=== PATIENT | male | born 1955 | race African-American/Black ===

== ENCOUNTER 2021-11-03 12:34 | Inpatient (IN) ==
[2021-11-03 12:58] LABS: Basophils # 0.1 10*3/uL (0.0-0.2); Basophils % 0.7 % (0.0-0.8); Eosinophils # 0.2 10*3/uL (0.0-0.87); Eosinophils % 1.6 % (0.00-10.9); Hematocrit 43.5 VOL% (42.0-52.0); Hemoglobin 13.6 GM/DL (14.0-18.0); Immature Granulocytes % 3.8 %; Immature Granulocytes Absolute 0.47 #; Lymphocytes # 8.3 10*3/uL (1.4-4.0); Lymphocytes % 66.5 % (21.2-54.2); Mean Corpuscular HGB Conc 31.3 GM/DL (32-36); Mean Corpuscular Volume 104.8 FL (87-102); Mean Platelet Volume 9.7 FL (9.6-12.0); Monocytes # 0.9 10*3/uL (0.11-0.8); Monocytes % 7.4 % (1.7-12.7); NRBC # 0.08 10*3/uL; Platelet Count 300 T/CUMM (130-400); Red Blood Count 4.15 MC/CUMM (3.8-5.5); Red Cell Distribution Width 12.2 % (9.3-17.3); White Blood Count 12.5 T/CUMM (4-12)
[2021-11-03 12:59] LABS: ABG Base Excess -20.7 MMOL/L (-2.5-2.5); ABG HCO3 9.9 MMOL/L (20-26); ABG Oxygen Saturation 96.5 % (95-100); ABG TCO2 18.1 MMOL/L (23-27)
[2021-11-03 13:00] LABS: ABG PH 6.843 (7.35-7.45)
[2021-11-03] MEDS ORDERED: ROCURONIUM 100 MG/10 ML VIAL IV ONE (13:05)
[2021-11-03] MEDS ORDERED: MIDAZOLAM 2 MG/2 ML VIAL ONE (13:11)
[2021-11-03 13:18] LABS: Anisocytosis 1+; Atypical Lymphocytes Few; Band Neutrophils 1 % (0-10); Burr Cells Few; Eosinophils 2 % (0-10); Lymphocytes 66 % (20-55); Macrocytosis 1+; Platelet Estimate Normal; Total Cells Counted 100
[2021-11-03] MEDS ORDERED: LACTATED RINGERS 1,000 ML IV ONE (13:24)
[2021-11-03] MEDS ORDERED: SODIUM BICARBONATE 50 MEQ/50 ML VIAL IV STA (13:25)
[2021-11-03 13:33] LABS: Albumin 3.8 G/DL (3.4-5.0); Bilirubin,Total 0.6 MG/DL (0.20-1.00); Calcium 9.2 MG/DL (8.5-10.1); Osmolality,Calculated 293.1 MOS/KG (273-304); Potassium 3.5 MMOL/L (3.5-5.1); Total Protein 6.5 G/DL (6.4-8.2)
[2021-11-03] MEDS ORDERED: ROCURONIUM 100 MG/10 ML VIAL IV STA (13:38)
[2021-11-03] MEDS ORDERED: MIDAZOLAM 2 MG/2 ML VIAL IV STA (13:38)
[2021-11-03 13:51] LABS: Mucus,Urine Occasional /LPF (Occasional); RBC,Urine 10 /HPF (0-4); Sperm,Urine Moderate /HPF (Negative); Squamous Epithelial Cell,Urine Occasional /HPF (0-10)
[2021-11-03 13:51] LABS: Arterial Base Excess iSTAT -4 MMOL/L (-2.5-2.5); Arterial O2 Saturation iSTAT 94 % (95-100); Arterial PCO2 iSTAT 51 MM HG (35-48); Arterial PO2 iSTAT 82 MM HG (80-95); Arterial Total CO2 iSTAT 25 MMO/L (23-27)
[2021-11-03 13:53] LABS: Urine Appearance Clear (Clear); Urine Color Yellow (Yellow)
[2021-11-03 13:54] LABS: Bilirubin,Urine Negative (Negative); Blood, Urine Moderate mg/dL (Negative); Glucose,Urine (UA) >=1000 mg/dL (Negative); Ketones,Urine Negative (Negative); Nitrite,Urine Negative (Negative); Protein,Urine >=300 mg/dL (Negative); Urine Specific Gravity >= 1.030 (1.001-1.035)
[2021-11-03 13:55] LABS: Urine Urobilinogen < 2.0 eU/dL (<2.0)
[2021-11-03 14:34] LABS: Barbiturates Screen,Urine Negative (Negative); Benzodiazepines Screen,Urine Negative (Negative); Cannabinoid Screen,Urine Positive (Negative); Opiate Screen,Urine Negative (Negative); Phencyclidine Screen,Urine Negative (Negative)
[2021-11-03] MEDS ORDERED: PIPERACILLIN/TAZOBACTAM 3,375 MG in SODIUM CHLORIDE 0.9% 100 ML IV STA (14:46)
[2021-11-03] MEDS ORDERED: DIAZEPAM 10 MG/2 ML SYRINGE ONE (15:19)
[2021-11-03] MEDS ORDERED: DIAZEPAM 10 MG/2 ML SYRINGE IV STA (15:20)
[2021-11-03] MEDS ORDERED: ONDANSETRON 4 MG/2 ML VIAL IV PRN (15:35)
[2021-11-03] MEDS ORDERED: ALBUTEROL 2.5 MG/3 ML NEB RESP TX PRN (15:35)
[2021-11-03] MEDS ORDERED: MIDAZOLAM 10 MG/2 ML VIAL ONE (15:53)
[2021-11-03] MEDS ORDERED: MIDAZOLAM 2 MG/2 ML VIAL IV ONE (15:54)
[2021-11-03] MEDS ORDERED: PHENYLEPHRINE DRIP 40 MG/250 ML PREMIX IV ONE (16:02)
[2021-11-03] MEDS ORDERED: SODIUM CHLORIDE 0.9% 1,000 ML IV ONE (16:06)
[2021-11-03] MEDS: PHENYLEPHRINE DRIP 40 MG/250 ML PREMIX IV PRN ×2 (16:06→21:26)
[2021-11-03] MEDS: CISATRACURIUM 200 MG in SODIUM CHLORIDE 0.9% 180 ML IV PRN (16:35)
[2021-11-03] MEDS ORDERED: CISATRACURIUM 10 MG/5 ML VIAL IV ONE (16:44)
[2021-11-03 16:52] LABS: Basophils % 0.2 % (0.0-0.8); Eosinophils % 0.1 % (0.00-10.9); Hematocrit 40.5 VOL% (42.0-52.0); Hemoglobin 13.5 GM/DL (14.0-18.0); Immature Granulocytes % 0.9 %; Immature Granulocytes Absolute 0.12 #; Lymphocytes # 1.2 10*3/uL (1.4-4.0); Lymphocytes % 8.4 % (21.2-54.2); Mean Corpuscular HGB Conc 33.3 GM/DL (32-36); Mean Corpuscular Volume 96.7 FL (87-102); Mean Platelet Volume 9.3 FL (9.6-12.0); Monocytes % 6.9 % (1.7-12.7); Neutrophils % 83.5 % (38.7-73.9); Platelet Count 298 T/CUMM (130-400); Red Blood Count 4.19 MC/CUMM (3.8-5.5); Red Cell Distribution Width 12.2 % (9.3-17.3); White Blood Count 13.9 T/CUMM (4-12)
[2021-11-03 17:07] LABS: Alanine Aminotransferase 141 U/L (16-61); Albumin 3.6 G/DL (3.4-5.0); Alkaline Phosphatase 70 U/L (45-117); Amylase 150 U/L (25-115); Aspartate Amino Transferase 156 U/L (0-37); Blood Urea Nitrogen 13 MG/DL (7-18); CKMB % 1.53 %; Calcium 7.6 MG/DL (8.5-10.1); Carbon Dioxide 26 MMOL/L (21-32); Chloride 111 MMOL/L (98-107); Glucose 167 MG/DL (74-106); Osmolality,Calculated 289.8 MOS/KG (273-304); Phosphorous 2.3 MG/DL (2.5-4.9); Sodium 144 MMOL/L (136-145); Total Protein 6.9 G/DL (6.4-8.2)
[2021-11-03 17:11] LABS: INR 1.1; PT Patient Result 11.7 SECS (10.5-12.0); Partial Thromboplastin Time 25.5 SECS (23.7-32.9)
[2021-11-03] MEDS: fentaNYL INJ 1,250 MCG in SODIUM CHLORIDE 0.9% 225 ML IV PRN (17:15)
[2021-11-03] MEDS ORDERED: hydrALAZINE 20 MG/1 ML VIAL IV PRN (17:19)
[2021-11-03 17:44] LABS: ABG Base Excess -4.1 MMOL/L (-2.5-2.5); ABG HCO3 21.1 MMOL/L (20-26); ABG Oxygen Saturation 99.6 % (95-100); ABG PCO2 47.2 MM HG (35-48); ABG PH 7.293 (7.35-7.45); ABG TCO2 20.1 MMOL/L (23-27)
[2021-11-03 18:01] LABS: Hyaline Casts,Urine 1 /LPF (0-3); RBC,Urine 4 /HPF (0-4); Squamous Epithelial Cell,Urine Occasional /HPF (0-10)
[2021-11-03 18:04] LABS: Bilirubin,Urine Negative (Negative); Blood, Urine Moderate mg/dL (Negative); Glucose,Urine (UA) 100 mg/dL (Negative); Ketones,Urine Negative (Negative); Nitrite,Urine Negative (Negative); Protein,Urine Negative (Negative); Urine Appearance Clear (Clear); Urine Color Yellow (Yellow); Urine Urobilinogen 0.2 eU/dL (<2.0)
[2021-11-03 18:05] VITALS: BP 113/68
[2021-11-03] MEDS ORDERED: GLUCAGON 1 MG VIAL IM PRN (18:05)
[2021-11-03] MEDS ORDERED: DEXTROSE 10% 250 ML BAG IV PRN (18:14)
[2021-11-03] MEDS: LACTATED RINGERS 1,000 ML IV SCH (18:49)
[2021-11-03] MEDS: ENOXAPARIN 40 MG/0.4 ML SYRINGE SUBCUT SCH (18:52)
[2021-11-03] MEDS: PANTOPRAZOLE 40 MG VIAL IV SCH (18:53)
[2021-11-03] MEDS: PIPERACILLIN/TAZOBACTAM 3,375 MG in SODIUM CHLORIDE 0.9% 100 ML IV SCH (21:45)
[2021-11-03] MEDS ORDERED: INSULIN LISPRO 100 UNIT/ML SUBCUT SCH (22:00)
[2021-11-03 22:02] LABS: Basophils % 0.2 % (0.0-0.8); Eosinophils % 0.1 % (0.00-10.9); Hematocrit 38.1 VOL% (42.0-52.0); Hemoglobin 13.1 GM/DL (14.0-18.0); Immature Granulocytes % 0.5 %; Immature Granulocytes Absolute 0.07 #; Lymphocytes # 0.8 10*3/uL (1.4-4.0); Lymphocytes % 5.6 % (21.2-54.2); Mean Corpuscular HGB Conc 34.4 GM/DL (32-36); Mean Corpuscular Volume 94.5 FL (87-102); Mean Platelet Volume 9.1 FL (9.6-12.0); Monocytes # 0.6 10*3/uL (0.11-0.8); Monocytes % 4.1 % (1.7-12.7); Neutrophils % 89.5 % (38.7-73.9); Platelet Count 284 T/CUMM (130-400); Red Blood Count 4.03 MC/CUMM (3.8-5.5); Red Cell Distribution Width 12.3 % (9.3-17.3)
[2021-11-03] MEDS: ACETYLCYSTEINE 600 MG CAPSULE PO SCH (22:11)
[2021-11-03 22:20] LABS: INR 1.1; PT Patient Result 11.9 SECS (10.5-12.0); Partial Thromboplastin Time 30.4 SECS (23.7-32.9)
[2021-11-03 22:23] LABS: CKMB % 1.58 %; Calcium 7.5 MG/DL (8.5-10.1); Potassium 3.5 MMOL/L (3.5-5.1)
[2021-11-03 22:29] LABS: High Sensitive Troponin I* 155.1 ng/L (0-78)
[2021-11-03] MEDS ORDERED: POTASSIUM CHLORIDE RIDER 20 MEQ/100 ML PREMIX IV ONE (22:49)
[2021-11-04] MEDS: LACTATED RINGERS 1,000 ML IV SCH ×6 (02:06→23:23)
[2021-11-04] MEDS: INSULIN REGULAR 100 UNIT/ML IV SCH ×8 (02:39→23:24)
[2021-11-04] MEDS: PIPERACILLIN/TAZOBACTAM 3,375 MG in SODIUM CHLORIDE 0.9% 100 ML IV SCH ×3 (04:20→20:03)
[2021-11-04 04:22] LABS: ABG Base Excess -3.3 MMOL/L (-2.5-2.5); ABG HCO3 21.7 MMOL/L (20-26); ABG Oxygen Saturation 99.7 % (95-100); ABG PCO2 35.4 MM HG (35-48); ABG PH 7.383 (7.35-7.45); ABG TCO2 18.7 MMOL/L (23-27)
[2021-11-04 04:36] LABS: Basophils % 0.2 % (0.0-0.8); Eosinophils % 0.1 % (0.00-10.9); Hematocrit 35.3 VOL% (42.0-52.0); Hemoglobin 11.9 GM/DL (14.0-18.0); Immature Granulocytes % 0.5 %; Immature Granulocytes Absolute 0.06 #; Lymphocytes # 1.1 10*3/uL (1.4-4.0); Lymphocytes % 9.7 % (21.2-54.2); Mean Corpuscular HGB Conc 33.7 GM/DL (32-36); Mean Corpuscular Volume 95.4 FL (87-102); Mean Platelet Volume 9.3 FL (9.6-12.0); Monocytes # 0.6 10*3/uL (0.11-0.8); Monocytes % 5.2 % (1.7-12.7); Neutrophils % 84.3 % (38.7-73.9); Platelet Count 258 T/CUMM (130-400); Red Cell Distribution Width 12.3 % (9.3-17.3); White Blood Count 11.3 T/CUMM (4-12)
[2021-11-04 04:44] LABS: INR 1.1; PT Patient Result 11.6 SECS (10.5-12.0)
[2021-11-04 04:52] LABS: CKMB % 1.61 %; High Sensitive Troponin I* 129.4 ng/L (0-78)
[2021-11-04 04:53] LABS: Bilirubin,Total 0.5 MG/DL (0.20-1.00); Calcium 7.5 MG/DL (8.5-10.1); Osmolality,Calculated 288.8 MOS/KG (273-304); Potassium 4.1 MMOL/L (3.5-5.1); Risk Ratio 2.64; Total Protein 5.3 G/DL (6.4-8.2); VLDL Cholesterol 22.8 MG/DL
[2021-11-04] MEDS: PHENYLEPHRINE DRIP 40 MG/250 ML PREMIX IV PRN (04:59)
[2021-11-04 06:04] LABS: Anisocytosis Slight; Band Neutrophils 22 % (0-10); Lymphocytes 10 % (20-55); Macrocytosis 1+; Platelet Estimate Normal; Total Cells Counted 100
[2021-11-04] MEDS ORDERED: SODIUM PHOSPHATE INJ 15 MMOL in SODIUM CHLORIDE 0.9% 250 ML IV ONE (08:05)
[2021-11-04] MEDS ORDERED: NOREPINEPHRINE 4 MG/4 ML VIAL IV ONE (08:05)
[2021-11-04] MEDS: NOREPINEPHRINE 8 MG in SODIUM CHLORIDE 0.9% 242 ML IV PRN (08:14)
[2021-11-04] MEDS: MIDAZOLAM 100 MG in SODIUM CHLORIDE 0.9% 80 ML IV PRN (09:08)
[2021-11-04] MEDS: ACETYLCYSTEINE 600 MG CAPSULE PO SCH ×2 (09:27→20:03)
[2021-11-04 10:16] LABS: ABG Base Excess -2.5 MMOL/L (-2.5-2.5); ABG HCO3 22.4 MMOL/L (20-26); ABG Oxygen Saturation 98.9 % (95-100); ABG PCO2 36.7 MM HG (35-48); ABG PH 7.387 (7.35-7.45); ABG TCO2 19.6 MMOL/L (23-27)
[2021-11-04 10:19] LABS: Basophils % 0.1 % (0.0-0.8); Eosinophils % 0.2 % (0.00-10.9); Hemoglobin 11.9 GM/DL (14.0-18.0); Immature Granulocytes % 0.3 %; Immature Granulocytes Absolute 0.03 #; Lymphocytes # 1.1 10*3/uL (1.4-4.0); Lymphocytes % 13.2 % (21.2-54.2); Mean Corpuscular Volume 95.1 FL (87-102); Mean Platelet Volume 9.4 FL (9.6-12.0); Monocytes # 0.4 10*3/uL (0.11-0.8); Monocytes % 4.7 % (1.7-12.7); Neutrophils % 81.5 % (38.7-73.9); Platelet Count 216 T/CUMM (130-400); Red Blood Count 3.68 MC/CUMM (3.8-5.5); Red Cell Distribution Width 12.5 % (9.3-17.3); White Blood Count 8.6 T/CUMM (4-12)
[2021-11-04 10:32] LABS: INR 1.1; PT Patient Result 11.6 SECS (10.5-12.0); Partial Thromboplastin Time 34.1 SECS (23.7-32.9)
[2021-11-04 10:33] LABS: CKMB % 1.77 %; Calcium 7.5 MG/DL (8.5-10.1); Osmolality,Calculated 288.8 MOS/KG (273-304); Potassium 3.4 MMOL/L (3.5-5.1)
[2021-11-04 10:34] LABS: High Sensitive Troponin I* 111.9 ng/L (0-78)
[2021-11-04 10:53] LABS: Anisocytosis 1+; Band Neutrophils 19 % (0-10); Lymphocytes 10 % (20-55); Macrocytosis Slight; Platelet Estimate Normal; Total Cells Counted 100
[2021-11-04] MEDS ORDERED: POTASSIUM CHLORIDE RIDER 20 MEQ/100 ML PREMIX IV ONE (11:05)
[2021-11-04 12:44] LABS: Hepatitis B Core IgM Quant < 0.05 Index; Hepatitis B Surface Ag Quant < 0.10 Index; Hepatitis B Surface Ag Result Non-Reactive (NonReactive); Hepatitis C Virus Ab Quant 0.09 Index; Hepatitis C Virus Ab Result Non-Reactive (NonReactive)
[2021-11-04] MEDS ORDERED: MEPERIDINE 25 MG/1 ML VIAL IV ONE (13:00)
[2021-11-04] MEDS ORDERED: MEPERIDINE 25 MG/1 ML VIAL IV PRN (13:59)
[2021-11-04] MEDS: CISATRACURIUM 200 MG in SODIUM CHLORIDE 0.9% 180 ML IV PRN ×2 (16:00→23:05)
[2021-11-04 16:19] LABS: Basophils % 0.1 % (0.0-0.8); Eosinophils % 0.5 % (0.00-10.9); Hematocrit 32.8 VOL% (42.0-52.0); Hemoglobin 11.3 GM/DL (14.0-18.0); Immature Granulocytes % 0.4 %; Immature Granulocytes Absolute 0.03 #; Lymphocytes # 1.3 10*3/uL (1.4-4.0); Lymphocytes % 16.5 % (21.2-54.2); Mean Corpuscular HGB Conc 34.5 GM/DL (32-36); Mean Corpuscular Volume 94.5 FL (87-102); Mean Platelet Volume 9.6 FL (9.6-12.0); Monocytes # 0.4 10*3/uL (0.11-0.8); Monocytes % 4.4 % (1.7-12.7); Neutrophils % 78.1 % (38.7-73.9); Platelet Count 198 T/CUMM (130-400); Red Blood Count 3.47 MC/CUMM (3.8-5.5); Red Cell Distribution Width 12.7 % (9.3-17.3); White Blood Count 7.9 T/CUMM (4-12)
[2021-11-04 16:27] LABS: PT Patient Result 11.5 SECS (10.5-12.0); Partial Thromboplastin Time 34.2 SECS (23.7-32.9)
[2021-11-04 16:29] LABS: Calcium 7.2 MG/DL (8.5-10.1); Osmolality,Calculated 286.8 MOS/KG (273-304); Potassium 3.7 MMOL/L (3.5-5.1)
[2021-11-04 16:42] LABS: Band Neutrophils 18 % (0-10); Lymphocytes 14 % (20-55); Total Cells Counted 100
[2021-11-04 16:43] LABS: Burr Cells Few; Macrocytosis Slight
[2021-11-04 16:44] LABS: Platelet Estimate Normal
[2021-11-04] MEDS: ENOXAPARIN 40 MG/0.4 ML SYRINGE SUBCUT SCH (16:49)
[2021-11-04] MEDS: PANTOPRAZOLE 40 MG VIAL IV SCH (16:49)
[2021-11-04 21:28] LABS: Basophils % 0.3 % (0.0-0.8); Eosinophils # 0.1 10*3/uL (0.0-0.87); Eosinophils % 0.8 % (0.00-10.9); Hematocrit 31.9 VOL% (42.0-52.0); Hemoglobin 10.9 GM/DL (14.0-18.0); Immature Granulocytes % 0.4 %; Immature Granulocytes Absolute 0.03 #; Lymphocytes % 14.1 % (21.2-54.2); Mean Corpuscular HGB Conc 34.2 GM/DL (32-36); Mean Corpuscular Volume 94.7 FL (87-102); Mean Platelet Volume 9.7 FL (9.6-12.0); Monocytes # 0.3 10*3/uL (0.11-0.8); Monocytes % 3.4 % (1.7-12.7); Platelet Count 179 T/CUMM (130-400); Red Blood Count 3.37 MC/CUMM (3.8-5.5); Red Cell Distribution Width 12.5 % (9.3-17.3); White Blood Count 7.3 T/CUMM (4-12)
[2021-11-04 21:36] LABS: INR 1.1; PT Patient Result 11.8 SECS (10.5-12.0); Partial Thromboplastin Time 37.6 SECS (23.7-32.9)
[2021-11-04 21:39] LABS: Calcium 7.2 MG/DL (8.5-10.1); Osmolality,Calculated 287.7 MOS/KG (273-304)
[2021-11-04 21:50] LABS: Band Neutrophils 2 % (0-10); Lymphocytes 13 % (20-55); Total Cells Counted 100
[2021-11-04 21:51] LABS: Platelet Estimate Normal
[2021-11-04] MEDS ORDERED: POTASSIUM CHLORIDE RIDER 10 MEQ/100 ML PREMIX IV ONE (21:55)
[2021-11-05] MEDS: INSULIN REGULAR 100 UNIT/ML IV SCH ×8 (01:27→23:54)
[2021-11-05 04:08] LABS: ABG Base Excess -1.9 MMOL/L (-2.5-2.5); ABG HCO3 22.8 MMOL/L (20-26); ABG Oxygen Saturation 98.3 % (95-100); ABG PCO2 34.2 MM HG (35-48); ABG PH 7.418 (7.35-7.45); ABG TCO2 19.9 MMOL/L (23-27)
[2021-11-05 04:10] LABS: Basophils % 0.2 % (0.0-0.8); Eosinophils # 0.1 10*3/uL (0.0-0.87); Eosinophils % 0.9 % (0.00-10.9); Hematocrit 31.6 VOL% (42.0-52.0); Hemoglobin 10.7 GM/DL (14.0-18.0); Immature Granulocytes % 0.5 %; Immature Granulocytes Absolute 0.04 #; Lymphocytes # 1.3 10*3/uL (1.4-4.0); Lymphocytes % 15.4 % (21.2-54.2); Mean Corpuscular HGB Conc 33.9 GM/DL (32-36); Mean Corpuscular Volume 94.9 FL (87-102); Mean Platelet Volume 9.7 FL (9.6-12.0); Monocytes # 0.2 10*3/uL (0.11-0.8); Monocytes % 2.6 % (1.7-12.7); Neutrophils % 80.4 % (38.7-73.9); Platelet Count 184 T/CUMM (130-400); Red Blood Count 3.33 MC/CUMM (3.8-5.5); Red Cell Distribution Width 12.9 % (9.3-17.3); White Blood Count 8.1 T/CUMM (4-12)
[2021-11-05 04:24] LABS: INR 1.1; PT Patient Result 12.4 SECS (10.5-12.0); Partial Thromboplastin Time 36.4 SECS (23.7-32.9)
[2021-11-05 04:27] LABS: Albumin 2.5 G/DL (3.4-5.0); Bilirubin,Total 0.5 MG/DL (0.20-1.00); Calcium 7.6 MG/DL (8.5-10.1); Osmolality,Calculated 284.8 MOS/KG (273-304); Potassium 3.3 MMOL/L (3.5-5.1); Total Protein 4.8 G/DL (6.4-8.2)
[2021-11-05 04:37] LABS: Anisocytosis 1+; Band Neutrophils 14 % (0-10); Eosinophils 1 % (0-10); Lymphocytes 15 % (20-55); Macrocytosis Slight; Platelet Estimate Normal; Total Cells Counted 100
[2021-11-05] MEDS ORDERED: POTASSIUM CHLORIDE RIDER 10 MEQ/100 ML PREMIX IV ONE (04:39)
[2021-11-05] MEDS: PIPERACILLIN/TAZOBACTAM 3,375 MG in SODIUM CHLORIDE 0.9% 100 ML IV SCH ×3 (04:59→21:05)
[2021-11-05] MEDS: CISATRACURIUM 200 MG in SODIUM CHLORIDE 0.9% 180 ML IV PRN (05:49)
[2021-11-05 07:24] LABS: ABG Base Excess -1.6 MMOL/L (-2.5-2.5); ABG HCO3 23.1 MMOL/L (20-26); ABG Oxygen Saturation 97.3 % (95-100); ABG PH 7.424 (7.35-7.45); ABG PO2 90.9 MM HG (80-95); ABG TCO2 20.1 MMOL/L (23-27)
[2021-11-05 07:25] LABS: Basophils % 0.2 % (0.0-0.8); Eosinophils # 0.1 10*3/uL (0.0-0.87); Eosinophils % 0.7 % (0.00-10.9); Hematocrit 31.3 VOL% (42.0-52.0); Hemoglobin 10.6 GM/DL (14.0-18.0); Immature Granulocytes % 0.5 %; Immature Granulocytes Absolute 0.04 #; Lymphocytes # 0.8 10*3/uL (1.4-4.0); Lymphocytes % 9.2 % (21.2-54.2); Mean Corpuscular HGB Conc 33.9 GM/DL (32-36); Mean Corpuscular Volume 94.8 FL (87-102); Mean Platelet Volume 9.6 FL (9.6-12.0); Monocytes # 0.4 10*3/uL (0.11-0.8); Neutrophils % 85.4 % (38.7-73.9); Platelet Count 189 T/CUMM (130-400); White Blood Count 8.8 T/CUMM (4-12)
[2021-11-05 07:38] LABS: INR 1.1; PT Patient Result 11.6 SECS (10.5-12.0); Partial Thromboplastin Time 34.9 SECS (23.7-32.9)
[2021-11-05 07:49] LABS: CKMB % 1.85 %; High Sensitive Troponin I* 60.6 ng/L (0-78)
[2021-11-05 07:50] LABS: Band Neutrophils 18 % (0-10); Lymphocytes 9 % (20-55); Total Cells Counted 100
[2021-11-05 07:51] LABS: Anisocytosis 1+; Macrocytosis Slight; Platelet Estimate Normal
[2021-11-05 07:55] LABS: Albumin 2.5 G/DL (3.4-5.0); Bilirubin,Total 0.5 MG/DL (0.20-1.00); Calcium 7.6 MG/DL (8.5-10.1); Phosphorous 1.8 MG/DL (2.5-4.9); Potassium 3.5 MMOL/L (3.5-5.1); Total Protein 4.9 G/DL (6.4-8.2)
[2021-11-05] MEDS: LACTATED RINGERS 1,000 ML IV SCH ×5 (07:56→23:11)
[2021-11-05] MEDS ORDERED: POTASSIUM CHLORIDE RIDER 20 MEQ/100 ML PREMIX IV ONE (08:20)
[2021-11-05] MEDS ORDERED: POTASSIUM CHLORIDE RIDER 10 MEQ/100 ML PREMIX IV PRN (08:22)
[2021-11-05] MEDS ORDERED: MAGNESIUM SULF RIDER 2 GM/50 ML PREMIX IV PRN (08:23)
[2021-11-05] MEDS: ACETYLCYSTEINE 600 MG CAPSULE PO SCH ×2 (08:24→21:05)
[2021-11-05] MEDS: POTASSIUM CHLORIDE RIDER 20 MEQ/100 ML PREMIX IV PRN ×2 (08:41→17:12)
[2021-11-05] MEDS ORDERED: LACTATED RINGERS 500 ML IV ONE (09:39)
[2021-11-05] MEDS: NOREPINEPHRINE 8 MG in SODIUM CHLORIDE 0.9% 242 ML IV PRN (10:08)
[2021-11-05 10:15] LABS: Basophils % 0.2 % (0.0-0.8); Eosinophils % 0.5 % (0.00-10.9); Hematocrit 30.3 VOL% (42.0-52.0); Hemoglobin 10.3 GM/DL (14.0-18.0); Immature Granulocytes % 0.4 %; Immature Granulocytes Absolute 0.03 #; Lymphocytes # 1.1 10*3/uL (1.4-4.0); Lymphocytes % 12.7 % (21.2-54.2); Mean Corpuscular Volume 96.5 FL (87-102); Mean Platelet Volume 9.7 FL (9.6-12.0); Monocytes # 0.3 10*3/uL (0.11-0.8); Monocytes % 3.7 % (1.7-12.7); Neutrophils % 82.5 % (38.7-73.9); Platelet Count 183 T/CUMM (130-400); Red Blood Count 3.14 MC/CUMM (3.8-5.5); Red Cell Distribution Width 13.1 % (9.3-17.3); White Blood Count 8.3 T/CUMM (4-12)
[2021-11-05 10:25] LABS: PT Patient Result 11.5 SECS (10.5-12.0); Partial Thromboplastin Time 33.4 SECS (23.7-32.9)
[2021-11-05 10:33] LABS: Calcium 6.9 MG/DL (8.5-10.1); Osmolality,Calculated 283.8 MOS/KG (273-304); Potassium 3.8 MMOL/L (3.5-5.1)
[2021-11-05 10:36] LABS: Anisocytosis 1+; Band Neutrophils 15 % (0-10); Lymphocytes 10 % (20-55); Macrocytosis 1+; Platelet Estimate Normal; Total Cells Counted 100
[2021-11-05] MEDS ORDERED: CALCIUM GLUCONATE RIDER 1,000 MG/50 ML PREMIX IV ONE (11:30)
[2021-11-05] MEDS ORDERED: POTASSIUM PHOSPHATE 20 MMOL in SODIUM CHLORIDE 0.9% 250 ML IV ONE (13:00)
[2021-11-05] MEDS: MIDAZOLAM 100 MG in SODIUM CHLORIDE 0.9% 80 ML IV PRN (13:11)
[2021-11-05 16:11] LABS: Basophils % 0.2 % (0.0-0.8); Eosinophils % 0.3 % (0.00-10.9); Hematocrit 30.7 VOL% (42.0-52.0); Hemoglobin 10.3 GM/DL (14.0-18.0); Immature Granulocytes % 0.9 %; Immature Granulocytes Absolute 0.08 #; Lymphocytes # 1.1 10*3/uL (1.4-4.0); Lymphocytes % 12.4 % (21.2-54.2); Mean Corpuscular HGB Conc 33.6 GM/DL (32-36); Mean Corpuscular Volume 97.2 FL (87-102); Mean Platelet Volume 9.8 FL (9.6-12.0); Monocytes # 0.3 10*3/uL (0.11-0.8); Monocytes % 3.5 % (1.7-12.7); Neutrophils % 82.7 % (38.7-73.9); Platelet Count 188 T/CUMM (130-400); Red Blood Count 3.16 MC/CUMM (3.8-5.5); Red Cell Distribution Width 13.1 % (9.3-17.3); White Blood Count 8.6 T/CUMM (4-12)
[2021-11-05 16:20] LABS: Calcium 7.5 MG/DL (8.5-10.1); Osmolality,Calculated 282.8 MOS/KG (273-304); Potassium 3.9 MMOL/L (3.5-5.1)
[2021-11-05] MEDS: LORazepam 2 MG/1 ML VIAL IV PRN (16:41)
[2021-11-05 16:45] LABS: PT Patient Result 11.4 SECS (10.5-12.0)
[2021-11-05] MEDS: ENOXAPARIN 40 MG/0.4 ML SYRINGE SUBCUT SCH (16:47)
[2021-11-05] MEDS: PANTOPRAZOLE 40 MG VIAL IV SCH (16:47)
[2021-11-05] MEDS ORDERED: DIAZEPAM 10 MG/2 ML SYRINGE IV PRN (17:49)
[2021-11-05 20:18] LABS: Lymphocytes 10 % (20-55); Total Cells Counted 100
[2021-11-05 20:19] LABS: Platelet Estimate Normal
[2021-11-05] MEDS: DIAZEPAM 10 MG/2 ML SYRINGE IV PRN ×2 (21:04→22:46)
[2021-11-05] MEDS: fentaNYL INJ 1,250 MCG in SODIUM CHLORIDE 0.9% 225 ML IV PRN (22:50)
[2021-11-06] MEDS: LORazepam 2 MG/1 ML VIAL IV PRN ×2 (00:42→04:17)
[2021-11-06] MEDS: DIAZEPAM 10 MG/2 ML SYRINGE IV PRN ×3 (01:15→04:17)
[2021-11-06] MEDS ORDERED: DIAZEPAM 10 MG/2 ML SYRINGE IV PRN (01:30)
[2021-11-06 03:34] LABS: Basophils % 0.3 % (0.0-0.8); Eosinophils # 0.1 10*3/uL (0.0-0.87); Eosinophils % 0.7 % (0.00-10.9); Hematocrit 33.6 VOL% (42.0-52.0); Immature Granulocytes % 0.9 %; Immature Granulocytes Absolute 0.11 #; Lymphocytes # 1.9 10*3/uL (1.4-4.0); Lymphocytes % 15.9 % (21.2-54.2); Mean Corpuscular HGB Conc 32.7 GM/DL (32-36); Mean Corpuscular Volume 99.1 FL (87-102); Mean Platelet Volume 9.6 FL (9.6-12.0); Monocytes # 0.7 10*3/uL (0.11-0.8); Monocytes % 5.9 % (1.7-12.7); Neutrophils % 76.3 % (38.7-73.9); Platelet Count 210 T/CUMM (130-400); Red Blood Count 3.39 MC/CUMM (3.8-5.5); Red Cell Distribution Width 13.2 % (9.3-17.3); White Blood Count 12.2 T/CUMM (4-12)
[2021-11-06 03:35] LABS: ABG Base Excess -4.8 MMOL/L (-2.5-2.5); ABG HCO3 20.2 MMOL/L (20-26); ABG Oxygen Saturation 84.1 % (95-100); ABG PCO2 54.9 MM HG (35-48); ABG PH 7.235 (7.35-7.45); ABG PO2 60.2 MM HG (80-95); ABG TCO2 21.5 MMOL/L (23-27)
[2021-11-06 03:54] LABS: Band Neutrophils 1 % (0-10); Eosinophils 1 % (0-10); Lymphocytes 8 % (20-55); Total Cells Counted 100
[2021-11-06 03:55] LABS: Platelet Estimate Adequate
[2021-11-06 03:59] LABS: Albumin 2.6 G/DL (3.4-5.0); Bilirubin,Total 0.6 MG/DL (0.20-1.00); Calcium 7.9 MG/DL (8.5-10.1); Osmolality,Calculated 284.7 MOS/KG (273-304); Potassium 4.3 MMOL/L (3.5-5.1); Total Protein 5.7 G/DL (6.4-8.2)
[2021-11-06] MEDS: INSULIN REGULAR 100 UNIT/ML IV SCH ×5 (05:04→19:47)
[2021-11-06] MEDS: LACTATED RINGERS 1,000 ML IV SCH ×3 (05:13→15:08)
[2021-11-06] MEDS: PIPERACILLIN/TAZOBACTAM 3,375 MG in SODIUM CHLORIDE 0.9% 100 ML IV SCH ×3 (05:49→20:16)
[2021-11-06] MEDS: MIDAZOLAM 100 MG in SODIUM CHLORIDE 0.9% 80 ML IV PRN (09:06)
[2021-11-06] MEDS: ACETYLCYSTEINE 600 MG CAPSULE PO SCH ×2 (09:06→20:19)
[2021-11-06] MEDS ORDERED: FUROSEMIDE 40 MG/4 ML VIAL IV ONE (13:01)
[2021-11-06] MEDS: fentaNYL INJ 1,250 MCG in SODIUM CHLORIDE 0.9% 225 ML IV PRN (14:15)
[2021-11-06] MEDS: PANTOPRAZOLE 40 MG VIAL IV SCH (17:03)
[2021-11-06] MEDS: ENOXAPARIN 40 MG/0.4 ML SYRINGE SUBCUT SCH (17:05)
[2021-11-07] MEDS: INSULIN REGULAR 100 UNIT/ML IV SCH ×3 (00:06→08:55)
[2021-11-07] MEDS: LACTATED RINGERS 1,000 ML IV SCH (02:10)
[2021-11-07] MEDS: CISATRACURIUM 200 MG in SODIUM CHLORIDE 0.9% 180 ML IV PRN (03:35)
[2021-11-07] MEDS: MIDAZOLAM 100 MG in SODIUM CHLORIDE 0.9% 80 ML IV PRN (04:01)
[2021-11-07 04:03] LABS: ABG Base Excess -4.6 MMOL/L (-2.5-2.5); ABG HCO3 20.7 MMOL/L (20-26); ABG Oxygen Saturation 99.4 % (95-100); ABG PCO2 36.8 MM HG (35-48); ABG PH 7.353 (7.35-7.45); ABG TCO2 18.4 MMOL/L (23-27)
[2021-11-07 04:06] LABS: Basophils % 0.3 % (0.0-0.8); Eosinophils # 0.1 10*3/uL (0.0-0.87); Eosinophils % 0.5 % (0.00-10.9); Hematocrit 33.3 VOL% (42.0-52.0); Hemoglobin 10.8 GM/DL (14.0-18.0); Immature Granulocytes % 0.4 %; Immature Granulocytes Absolute 0.04 #; Lymphocytes # 0.6 10*3/uL (1.4-4.0); Lymphocytes % 6.1 % (21.2-54.2); Mean Corpuscular HGB Conc 32.4 GM/DL (32-36); Mean Corpuscular Volume 99.1 FL (87-102); Mean Platelet Volume 9.6 FL (9.6-12.0); Monocytes # 0.5 10*3/uL (0.11-0.8); Monocytes % 4.9 % (1.7-12.7); Neutrophils % 87.8 % (38.7-73.9); Platelet Count 192 T/CUMM (130-400); Red Blood Count 3.36 MC/CUMM (3.8-5.5); Red Cell Distribution Width 13.2 % (9.3-17.3); White Blood Count 9.5 T/CUMM (4-12)
[2021-11-07] MEDS: fentaNYL INJ 1,250 MCG in SODIUM CHLORIDE 0.9% 225 ML IV PRN (04:08)
[2021-11-07] MEDS: PIPERACILLIN/TAZOBACTAM 3,375 MG in SODIUM CHLORIDE 0.9% 100 ML IV SCH (04:27)
[2021-11-07 04:28] LABS: Calcium 7.5 MG/DL (8.5-10.1); Phosphorous 4.3 MG/DL (2.5-4.9)
[2021-11-07 04:29] LABS: Albumin 2.4 G/DL (3.4-5.0); Bilirubin,Total 0.8 MG/DL (0.20-1.00); Calcium 8.2 MG/DL (8.5-10.1); Osmolality,Calculated 283.1 MOS/KG (273-304); Total Protein 5.8 G/DL (6.4-8.2)
[2021-11-07 05:02] LABS: Band Neutrophils 1 % (0-10); Eosinophils 2 % (0-10); Lymphocytes 7 % (20-55); Macrocytosis 1+; Total Cells Counted 100
[2021-11-07] MEDS: ACETYLCYSTEINE 600 MG CAPSULE PO SCH (09:26)
[2021-11-07] MEDS ORDERED: MEROPENEM 500 MG in SODIUM CHLORIDE 0.9% 100 ML IV SCH (10:00)
[2021-11-07] MEDS: DIAZEPAM 10 MG/2 ML SYRINGE IV PRN ×8 (11:57→20:35)
[2021-11-07] MEDS: MORPHINE 2 MG/1 ML SYRINGE IV PRN ×7 (13:21→20:36)
[2021-11-08] MEDS: MORPHINE 2 MG/1 ML SYRINGE IV PRN ×6 (01:25→04:17)
[2021-11-08] MEDS: DIAZEPAM 10 MG/2 ML SYRINGE IV PRN ×3 (01:25→04:03)
== END 2021-11-08 04:19 | disposition expired | DRG 208 ==
LOC: N.ED 12:34 → N.CC 12:35
PROVIDERS: ADMIT Internal Medicine; ATTEND Internal Medicine